=== PATIENT | female | born 1950 | race Caucasian/White ===

== ENCOUNTER 2017-02-10 18:21 | Inpatient (IN) | payer OTHER ==
[~2017-02-10] VITALS: Ht 160 cm; Wt 71.7 kg
--- NOTE | ~2017-02-10 | H ---
[facility] [place] [address] HISTORY AND PHYSICAL Name: KOFFI KAUFMAN Room #: 201-P ADM IN M.R.#: [id number] Admission: 02/10/17 Attend Phys: Brain Clark DO Discharge: Date of : 54 Report #: [id number] THIS REPORT FOR: //name// CC: William Clark DATE OF SERVICE: 02/10/2017 ATTENDING PHYSICIAN: Brain Clark DO. PRIMARY CARE PHYSICIAN: William Alejandre DO. CHIEF COMPLAINT: A-fib with RVR. HISTORY OF PRESENT ILLNESS: The patient is a 66-year-old female who was initially admitted at [facility] on 02/08/2017 for a fall in which she sustained a fracture of her right ribs. She was noted to have pneumonia as well and has been treated with vancomycin and Zosyn. At some point, she went into atrial fibrillation with RVR and she was transferred here since they do not have a caustic pump operator available. She does have a history of paroxysmal atrial fibrillation and normally takes oral Cardizem. She was not feeling any palpitations with her elevated heart rate. She denies any chest pain, but does continue to have pain in her right rib area, specifically with coughing and deep breathing. She has been using incentive spirometer. She has been using oxycodone p.r.n. with some relief. She does have a loose cough and she says it has been nonproductive. It looks like at [facility] [place], she was evaluated by Speech Therapy and it was recommended that she have a video swallow evaluation, but this has not yet been done. She does have Parkinson's. She states sometimes food seems to "go down the wrong pipe," but she does not have any difficulty swallowing liquids. She denies any significant choking episodes. She does have COPD and normally wears 3 liters of oxygen at all times. She has also been dealing with constipation. She says she normally has a bowel movement about every 3 days. She has not had a bowel movement since Monday, so it has been about 4 days. She denies any nausea or vomiting. She was transferred here on Cardizem and amiodarone drips. Upon arrival, her heart rate was 75, so that amiodarone drip has been discontinued. She is currently resting comfortably. PAST MEDICAL HISTORY: COPD, which is oxygen dependent; CML which is in remission; coronary artery disease; paroxysmal atrial fibrillation; chronic anemia; Parkinson's; chronic back pain and GERD. 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 She has also had hysterectomy, tonsillectomy, Carlo fundoplication, cholecystectomy, cervical fusion. [facility] [place] [place] [address] [place] [address] HISTORY AND PHYSICAL Name: KOFFI KAUFMAN Room #: 201-P [facility] IN M.R.#: [id number] Admission: 02/10/17 Attend Phys: Brain Clark DO Discharge: Date of : 54 Report #: [id number] ALLERGIES: CHEESE, but no known drug allergies. HOME MEDICATIONS: Current medications from [place] show that she was on Zosyn 3.375 g IV q. 6 hours, vancomycin 1 g IV b.i.d., albuterol nebulizer q. 6 hours, cyclobenzaprine 10 mg t.i.d. p.r.n., Lovenox 40 mg at bedtime, diltiazem drip and prior to that, she had been on Cardizem 240 mg daily, oxycodone 5 mg 1-2 tabs q. 4 hours p.r.n. pain, Tylenol p.r.n., Sinemet 10/100 one tablet q.i.d., Lasix 40 mg daily, budesonide b.i.d., Mucinex 10 mL q. 6 hours p.r.n. cough, Dulcolax suppository at bedtime, Colace 100 mg b.i.d., MiraLax 17 g at bedtime p.r.n., Protonix 40 mg daily, Solu-Medrol 60 mg q. 6 hours and lidocaine patch daily. SOCIAL HISTORY: The patient is an ex-smoker, having quit 17 years ago after smoking 1-1/2 packs per day. Denies any drug use. She drinks alcohol occasionally on special occasions. She lives with her spouse who still smokes, but not in the home. She is on disability for her lung problems. She ambulates with a walker. She has had another fall in the last few weeks prior to the fall in which she had rib fracture. FAMILY HISTORY: There is coronary artery disease on her mom's side. Her father had diabetes and hypertension. REVIEW OF SYSTEMS: Twelve point review of systems was reviewed with the patient, otherwise negative unless stated in the HPI. PHYSICAL EXAMINATION: GENERAL: The patient is an alert female in no acute distress. VITAL SIGNS: Temperature 37.1; heart rate initially 46 on arrival, it is now 75; respirations 18; blood pressure 113/62; oxygen 97% on room air. HEENT: PERRLA. Sclerae is nonicteric. Oral mucosa is pink and moist. NECK: Supple, no JVD noted. CARDIOVASCULAR: Heart rate is irregular, but no murmurs, rubs or gallops. RESPIRATORY: Breath sounds are clear, but diminished in both bases. Breathing is nonlabored. There is no wheezing. She does have a loose nonproductive cough. ABDOMEN: Round, somewhat distended, but soft. Bowel sounds are positive. VASCULAR: No edema noted. Pedal pulses are 2+. NEUROLOGIC: The patient is alert and oriented x 3. She is able to answer questions and follow commands appropriately. She does have some bilateral upper extremity and head tremors with some involuntary head movements. No focal weakness noted. SKIN: Intact. No rashes or lesions, but she does have an area of ecchymosis on her right lateral rib areas and on her left knee. LABORATORY AND DIAGNOSTICS: Labs at [place] today showed a WBC up to 27.5. It was 21.2 yesterday; hemoglobin 11.3; platelets 274. Sodium 137, potassium 3.6, BUN [facility] [place] [place] [address] [place] [address] HISTORY AND PHYSICAL Name: KOFFI KAUFMAN Room #: 201-P [facility] IN .R.#: [id number] Admission: 02/10/17 Attend Phys: Brain Clark DO Discharge: Date of : 54 Report #: [id number], creatinine 0.8, glucose 101. LFTs are within normal limits. INR was 1.1. ASSESSMENT AND PLAN: 1. Atrial fibrillation with RVR. Her heart rate is now improved after Cardizem and amiodarone drips. We will go ahead and discontinue the amiodarone drip and continue on Cardizem. Cardiology is consulted. Apparently with her history of paroxysmal atrial fibrillation, she was not on any anticoagulation presumably due to her fall risk with Parkinson's. 2. Recent fall with right rib fracture. Continue with incentive spirometry and encourage coughing and deep breathing. Continue with pain control. 3. Pneumonia. I do not have the actual chest x-ray to review, but we will check PA and lateral chest x-ray in the morning. Continue with vancomycin and Zosyn, add Mucinex and continue with breathing treatments. We will follow blood cultures from [place]. 4. Acute on chronic hypoxic respiratory failure due to chronic obstructive pulmonary disease. She is oxygen dependent. We will continue with breathing treatments and IV steroids, which we will wean as able. 5. Chronic myeloid leukemia. The patient states this is in remission. 6. Parkinson's. Continue with Sinemet daily. There was concern for some dysphagia possibly causing aspiration and she had been evaluated by speech therapy at [place] and their notes did recommend a video swallow eval, which has not yet been done. We will go ahead and perform that here and place her on aspiration precautions. 7. Deep venous thrombosis prophylaxis. Place SCDs and continue Lovenox. We will continue to follow the patient closely throughout the hospitalization and make changes based on clinical status. <ELECTRONICALLY SIGNED> By: TODD Jacob 02/11/17 0743 0154 0256 TODD Jacob /nt
--- NOTE | ~2017-02-10 | HC ---
[facility] [place] [address] CONSULTATION Name: SHAEKOFFI Hollie Room #: 201-P [facility] IN ..#: [id number] Admission: 02/10/17 Attend Phys: Mavis Hardy MD Discharge: Date of : 54 Report #: [id number] THIS REPORT FOR: //name// CC: William Clark REASON FOR CONSULTATION: Atrial fibrillation. HISTORY OF PRESENT ILLNESS: The patient is a 66-year-old woman with a history of oxygen dependent lung disease and Parkinson's disease. She had a nonsyncopal fall on February 08, associated with rib fractures. Radiographic study suggested pneumonia. During her hospital stay, she developed atrial fibrillation with a rapid ventricular response and she was transferred to [facility] for further evaluation. She is completely asymptomatic with rhythm disturbance. She does have a history of paroxysmal atrial fibrillation for which she takes Cardizem. She denies chest heaviness, pressure or ischemic type symptoms. No history of palpitations, near syncope or syncope. In 1998, she underwent right atrial myxoma excision. ALLERGIES: To CHEESE. MEDICATIONS: Include Zosyn, vancomycin, nebulizer, Lovenox, diltiazem CD 240 mg daily, Sinemet 4 times a day, Lasix 40 mg daily, Mucinex, Colace, MiraLax, and Protonix. SOCIAL HISTORY: She is a former smoker, is disabled. FAMILY HISTORY: Notable for coronary artery disease. REVIEW OF SYSTEMS: All systems negative except as that noted above. PHYSICAL EXAMINATION: GENERAL: A pleasant elderly woman who is in no distress. VITAL SIGNS: Blood pressure is 112/50, heart rate of 90 and irregular. She is afebrile. HEENT: There are neither xanthelasma, subcutaneous xanthomata, oral mucosal or digital cyanosis or kyphoscoliosis present. CHEST: Reveals diminished breath sounds at the right base. CARDIOVASCULAR: Irregularly irregular rhythm with normal S1, S2. ABDOMEN: Soft and nontender. EXTREMITIES: Without cyanosis, clubbing, or edema. Radial pulses are 2+. NEUROLOGIC: She is alert with a nonfocal exam. LABORATORY DATA: Sodium is 141, potassium 3.9, creatinine 0.7. Troponin 0. White count 21,000, hemoglobin 11, hematocrit 34, platelet count 335. EKG, atrial fibrillation. Chest x-ray demonstrates patchy right lower lobe pneumonia. [address] [address] CONSULTATION Name: SHAEARBENSUSANA Browne Room #: 201-P [facility] IN M.R.#: [id number] Admission: 02/10/17 Attend Phys: Mavis Hardy MD Discharge: Date of : 54 Report #: [id number] IMPRESSION: 1. Oxygen dependent chronic obstructive pulmonary disease. 2. Nonsyncopal fall with right rib fractures. 3. Pneumonia. 4. Atrial fibrillation with a rapid ventricular response, clinically asymptomatic. 5. Parkinson's disease. 6. History of gait instability and falls. RECOMMENDATIONS: 1. Resume oral Cardizem. 2. Given her falls, this one associated with rib fractures. I would recommend use of low dose daily aspirin in place of anticoagulant therapy. I believe that her risk of anticoagulation outweighs benefits. 3. Rate control strategy for atrial fibrillation is recommended given the asymptomatic nature of this rhythm disturbance. Thank you for asking me to participate in the patient's care. <ELECTRONICALLY SIGNED> By: Vern Chapin MD, [facility] 02/13/17 0918 1009 1517 Vern Chapin MD, FACC /nt
--- NOTE | ~2017-02-10 | HC ---
[facility] [place] [address] CONSULTATION Name: KOFFI KAUFMAN Room #: 201-P ADM IN M.R.#: [id number] Admission: 02/10/17 Attend Phys: Brain Clark DO Discharge: Date of : 54 Report #: [id number] THIS REPORT FOR: //name// CC: William Clark PRIMARY CARE PHYSICIAN: Dr. William Alejandre. REFERRING PHYSICIAN: Dr. Clark. REASON FOR REFERRAL: COPD. HISTORY OF PRESENT ILLNESS: The patient is a 66-year-old white female who was transferred from [facility] following a fall. She was found to have atrial fibrillation with rapid ventricular response. Therefore, she was transferred for further evaluation and management. The patient has a history of COPD. She is followed primarily by solderer barrel ribs from [facility] _[facility]. She is known to have pulmonary fibrosis involving the right lower lobe. The patient also has Parkinson's disease. She was doing fairly well when she slipped and fell on February 08 sustaining rib fractures. She was treated for possible pneumonia. She was then found to be in atrial fibrillation with rapid ventricular response. She was transferred to [facility]. Aside from tachycardia, she denies any fever, night sweats or chills. She denies any productive cough. She has been weak primarily because of her Parkinson's disease. PAST MEDICAL HISTORY: As mentioned above, COPD, severity unknown, oxygen dependent, followed by a solderer barrel ribs from [facility]; Parkinson's disease; CML, in remission; coronary artery disease; history of paroxysmal atrial fibrillation; anemia; chronic back pain; gastroesophageal reflux disease. PAST SURGICAL HISTORY: Remarkable for coronary artery bypass surgery in 1998, history of resection of the right atrial myxoma, hysterectomy, tonsillectomy, Carlo fundoplication, cholecystectomy, cervical fusion. ALLERGIES: None to medications. She is allergic to CHEESE. HOME MEDICATIONS: List reviewed. This include Zosyn, vancomycin, Lovenox, nebulized budesonide, Mucinex, Solu-Medrol. FAMILY HISTORY: Notable for coronary artery disease on the maternal side of the family. Father with diabetes and hypertension. [facility] [address] [place] [address] CONSULTATION Name: KOFFI KAUFMAN Hollie Room #: 201-P [facility] IN [facility].#: [id number] Admission: 02/10/17 Attend Phys: Brain Clark DO Discharge: Date of : 54 Report #: [id number] SOCIAL HISTORY: The patient has smoked, but quit about 19 years ago after having smoked a pack and a half for most of her life. She drinks occasional alcohol. She is . She walks with a walker. REVIEW OF SYSTEMS: Notable for generalized weakness and debility due to Parkinson's and COPD. Otherwise, 10-point system review negative. PHYSICAL EXAMINATION: GENERAL: She is awake, alert, in no apparent distress. VITAL SIGNS: Temperature is 97.4 degrees Fahrenheit, pulse is 94, respiratory rate is 18, blood pressure 114/63 mmHg, saturation 98%. HEENT: Normocephalic, atraumatic. NECK: Supple, without lymphadenopathy or thyromegaly. CHEST: Breath sounds are fair without any obvious wheezes. Few scattered crackles in the left base. CARDIOVASCULAR: Normal S1, S2. There is no murmur or gallop. There is no JVD. There is no carotid bruit. Pulses are 2+/4+ bilaterally. ABDOMEN: Soft, nontender, no organomegaly or masses felt. GENITOURINARY: Deferred. RECTAL: Deferred. EXTREMITIES: There is no edema, cyanosis or clubbing. LABORATORY DATA: Chest x-ray shows mild interstitial infiltrate seen in the right lower lobe. There appears to be chronic right lower lobe infiltrates dating back to 2011. Small right pleural effusion is seen. A 2D echocardiogram shows an ejection fraction of 55%, mild mitral regurgitation, normal pulmonary arteries, otherwise unremarkable. EKG shows first-degree AV block, atrial flutter with 3:1 block, otherwise no acute ischemic changes. Electrolytes unremarkable. WBC 21,600, hemoglobin 11.0, platelets are normal, no evidence of bandemia. IMPRESSION: 1. Chronic obstructive pulmonary disease, severity undefined, oxygen dependent without obvious exacerbation. 2. Chronic right lower lobe infiltrate, (? Pneumonia), currently on Zosyn and vancomycin. Could consider discontinuing antibiotics if the patient remains afebrile and stable. 3. Nvpit-xt-sitmnef hypoxic respiratory failure. 4. Recent fall with right-sided rib fractures. 5. Atrial fibrillation with flutter. 6. Coronary artery disease with past history of coronary artery bypass surgery. 7. Parkinson's disease with progressive debility and weakness. [address] [address] CONSULTATION Name: KOFFI KAUFMAN Room #: 201-P [facility] IN M.R.#: [id number] Admission: 02/10/17 Attend Phys: Brain Clark DO Discharge: Date of : 54 Report #: [id number] RECOMMENDATION: We will continue bronchodilators. Taper corticosteroids. We will continue antibiotics for now, but will consider discontinuing if the patient remains afebrile and stable. Overall, the patient is doing fairly well from pulmonary standpoint. DVT and GI prophylaxis will be addressed. Thank you for this consultation. <ELECTRONICALLY SIGNED> By: Thomas Samuels MD 02/12/17 1438 1437 2124 Thomas Samuels MD /nt
--- NOTE | ~2017-02-10 | EKG ---
[address] [place] [address] ELECTROCARDIOGRAM REPORT Name: KOFFI KAUFMAN Room #: 201-P ADM IN M.R.#: [id number] Admission: 02/10/17 Attend Phys: Brain Clark DO Discharge: Date of : 54 Report #: [id number] THIS REPORT FOR: //name// [facility] Test Date: 2017-02-11 Test Time: 10:28:32 Pat Name: KOFFI KAUFMAN Department: Room: 201 P Gender: F Credit Resolution Representative: EDILBERTO : 1950 Requested By: Vern Chapin Order Number: [id number] MD: Vern Chapin Measurements Intervals [place] Rate: 94 P: IL: QRS: 77 QRSD: 97 T: 65 QT: 394 QTc: 493 Interpretive Statements Atrial flutter with predominant 3:1 AV block Nonspecific T wave abnormality Compared to ECG 11/01/2009 07:18:17 Atrial flutter has replaced sinus rhythm Electronically Signed On 02-12-2017 9:55:57 NUT DEHYDRATOR OPERATOR by Vern Chapin [email or web address] <ELECTRONICALLY SIGNED> By: Vern Chapin MD, [facility] 02/12/17 0955 1028 1028 Vern Chapin MD, [facility] /EPI
--- NOTE | ~2017-02-10 | EKG ---
[address] [address] ELECTROCARDIOGRAM REPORT Name: KOFFI KAUFMAN Room #: 201-P ADM IN M.R.#: [id number] Admission: 02/10/17 Attend Phys: Mavis Hardy MD Discharge: Date of : 54 Report #: [id number] THIS REPORT FOR: //name// [facility] Test Date: 2017-02-14 Test Time: 09:19:47 Pat Name: ARBENSUSANA SHAE Department: Room: 201 P Gender: F Bank Sales And Service Manager: RAUL : 1950 Requested By: Nkechi Batista Order Number: [id number] MD: Jacob Taylor Measurements Intervals [place] Rate: 128 P: IN: QRS: 77 QRSD: 91 T: 58 QT: 345 QTc: 504 Interpretive Statements Atrial flutter Compared to ECG 02/11/2017 10:28:32 Prolonged QT interval now present AV block, advanced (high-grade) no longer present T-wave abnormality no longer present Electronically Signed On 02-14-2017 21:43:32 CUPBOARD BUILDER by Jacob Taylor [email or web address] <ELECTRONICALLY SIGNED> By: Jacob Taylor MD 02/14/17 2143 8 8 Jacob Taylor MD /EPI
--- NOTE | ~2017-02-10 | 2DMMODE ---
[facility] [address] [place] [address] 2 D/M-MODE ECHOCARDIOGRAM Name: KOFFI KAUFMAN Room #: 201-P [facility] IN ..#: [id number] Admission: 02/10/17 Attend Phys: Brain Clark, Discharge: Date of : 54 Date of Service: 02/11/17 1221 Report #: [id number] THIS REPORT FOR: //name// APPROVED REPORT Study performed: 02/11/2017 11:43:40 EXAM: Comprehensive 2D, Doppler, and color-flow Echocardiogram Patient Location: Bedside Room #: 201 Status: routine BSA: 1.74 BP: 120/55 mmHg Other Information Study Quality: Technically Difficult/Adequate Indications COPD Atrial Fibrillation CAD 2D Dimensions RVDd: 28.94 mm LVEF(%): 48.59 (>50%) IVSd: 11.06 (7-11mm) LVOT Diam: 17.76 (18-24mm) LVDd: 48.36 mm PWd: 9.87 (7-11mm) LVDs: 36.50 (25-40mm) Aortic Root: 26.45 mm IVC: 13.00 mm Jacinto's LVEF: 48.59 % Volumes Left Atrial Volume (Systole) Single Plane 4CH: 25.72 mL Single Plane 2CH: 42.75 mL LA ESV Index: 23.00 mL/m2 Aortic Valve AoV Peak Michael.: 1.15 m/s AO Peak Gr.: 5.32 mmHg LVOT Max P.05 mmHg LVOT Max V: 0.72 m/s BARBARA Vmax: 1.54 cm2 Mitral Valve [facility] [address] [place] [address] 2 D/M-MODE ECHOCARDIOGRAM Name: KOFFI KAUFMAN Room #: 201-P [facility] IN [facility]#: [id number] Admission: 02/10/17 Attend Phys: Brain Clark, Discharge: Date of : 54 Date of Service: 02/11/17 1221 Report #: [id number] MV Decel. Time: 159.95 ms MV E Max Michael.: 1.48 m/s Pulmonary Valve PV Peak Michael.: 1.04 m/s PV Peak Gr.: 4.31 mmHg Tricuspid Valve TR Peak Michael.: 2.60 m/s RAP Estimate: 5.00 mmHg TR Peak Gr.: 27.13 mmHg PA Pressure: 32.00 mmHg Left Ventricle The left ventricle is normal size. There is normal LV segmental wall motion. There is normal left ventricular wall thickness. The left ventricular systolic function is normal. The left ventricular ejection fraction is within the normal range. LVEF is 55%. This study is not technically sufficient to allow evaluation of the LV diastolic function. Right Ventricle The right ventricle is normal size. The right ventricular systolic function is normal. Atria The left atrium size is normal. The right atrium size is normal. Aortic Valve The aortic valve is not well visualized. No aortic regurgitation is present. There is no aortic valvular stenosis. Mitral Valve Mild mitral annular calcification Mild mitral regurgitation. No evidence of mitral valve stenosis. Tricuspid Valve The tricuspid valve is normal in structure. Trace to mild tricuspid regurgitation. PAP is estimated at 32 mmHg. Pulmonic Valve Pulmonic valve is not well visualized. Great Vessels The aortic root is normal in size. IVC is normal in size and collapses >50% with inspiration. [facility] [place] [address] 2 D/M-MODE ECHOCARDIOGRAM Name: ARBEN KAUFMANSUSANA Browne Room #: 201-P [facility] IN M.R.#: [id number] Admission: 02/10/17 Attend Phys: Brain Clark, Discharge: Date of : 54 Date of Service: 02/11/17 1221 Report #: [id number] Pericardium There is no pericardial effusion. <Conclusion> The left ventricular systolic function is normal. There is normal LV segmental wall motion. LVEF 55%. The aortic valve is not well visualized. No aortic valvular stenosis or insufficiency. Mild mitral annular calcification. Mild mitral regurgitation. Pulmonary artery pressure of 32mmHg There is no pericardial effusion. <ELECTRONICALLY SIGNED> By: Vern Chapin MD, [facility] 02/11/17 1221 1221 1221 Vern Chapin MD, FAC /INF
[~2017-02-10 18:21] MED LIST: ADVAIR 500-501 EACH INH; ASPIRIN325 PO; AVELOX 400 MG400 MG PO; BAYER CHEWABLE81 MG PO; BENZTROPINE MES1 MG PO; COUMADIN 4 MG TA4 M1 PO; DIGOXIN250 MCG OR; DILTIAZEM ER240 M1 PO; FUROSEMIDE 40 M40 M1 PO; HYDROCODONE-AP1 EAC6 PO; JANTOVEN1 MG PO; LANOXIN 0.250.25 M1 OR; NEBULIZER; OXYCODON-ACETA1 EAC1 PO; PREDNISONE 10 M10 M1 PO; PROAIR HFA8.5 GM IH; SEROQUEL 25 MG25 M1 PO; SPIRIVA; SPIRIVA INH; STOOL SOFTENER; STOOL SOFTNER; SYMBICORT160 MCG/4. INH; TASIGNA200 MG PO; XOPENEX
[2017-02-10 20:30] VITALS: BP 113/62
[2017-02-10] MEDS ORDERED: TYLENOL325 MG PO (21:46)
[2017-02-10] MEDS ORDERED: ALBUTEROL2.5 MG/31 INH (21:47)
[2017-02-10] MEDS ORDERED: BISACODYL SUPP10 MG RECTAL (21:47)
[2017-02-10] MEDS ORDERED: SINEMET 10-1001 EAC1 PO (21:48)
[2017-02-10] MEDS ORDERED: PULMICORT0.25 MG/3 INH (21:48)
[2017-02-10] MEDS ORDERED: CARDIZEM CD240 MG PO (21:49)
[2017-02-10] MEDS ORDERED: FLEXERIL PO (21:49)
[2017-02-10] MEDS ORDERED: ENOXAPARIN40 MG/0.1 SUBQ (21:49)
[2017-02-10] MEDS ORDERED: COLACE100 MG PO (21:49)
[2017-02-10] MEDS ORDERED: LASIX 40 MG TAB40 M2 PO (21:50)
[2017-02-10] MEDS ORDERED: MUCINEX FAST-M180 M4 PO (21:52)
[2017-02-10] MEDS ORDERED: VANCO 1 GR1 GM/250 M IVPB (21:52)
[2017-02-10] MEDS ORDERED: DILTIAZEM100 MG/100 IV (21:53)
[2017-02-10] MEDS ORDERED: ZOSYN 3.373.375 GM/1 IV (21:53)
[2017-02-10] MEDS ORDERED: LIDODERM1 EACH TRANSDERM (21:54)
[2017-02-10] MEDS ORDERED: SOLU-MEDRO40 MG/1 M2 IV PUSH (21:55)
[2017-02-10] MEDS ORDERED: OXYCODONE HCL5 MG PO (21:56)
[2017-02-10] MEDS ORDERED: PROTONIX40 M1 PO (21:59)
[2017-02-10] MEDS ORDERED: MIRALAX17 GM PO (21:59)
[2017-02-11 00:15] VITALS: BP 122/60
[2017-02-11 04:30] VITALS: BP 120/55
[2017-02-11 04:35] LABS: HEMATOCRIT 34.3 % (37.0-47.0); MCH 29.5 pg (26.0-34.0); MCHC 31.9 g/dL (28.0-37.0); MCV 92.2 fL (80.0-100.0); PLATELET COUNT 335 thou/uL (150-400); RBC 3.72 mil/uL (4.20-5.00); RDW 14.7 % (10.5-14.5); WBC 21.6 thou/uL (4.0-11.0)
[2017-02-11 04:36] LABS: MANUAL DIFF YES
[2017-02-11 04:46] LABS: CREATININE 0.7 mg/dL (0.6-1.0); MAGNESIUM 1.9 mg/dL (1.8-2.4); POTASSIUM 3.9 mmol/L (3.5-5.1)
[2017-02-11 06:00] LABS: ABSOLUTE NEUTROPHILS 20.5 thou/uL (1.4-8.2); METAMYELOCYTES 2 %; MYELOCYTES 1 %; TOTAL CELL COUNT 100
[2017-02-11 06:01] LABS: PLATELET ESTIMATE NORMAL
[2017-02-11 07:56] VITALS: BP 112/50
[2017-02-11 11:43] VITALS: BP 114/63
[2017-02-11 16:36] VITALS: BP 102/54
[2017-02-11 21:10] VITALS: BP 132/66
[2017-02-12 04:40] VITALS: BP 127/72
[2017-02-12 06:00] VITALS: BP 110/47
[2017-02-12 07:11] LABS: HEMATOCRIT 35.8 % (37.0-47.0); HEMOGLOBIN 11.3 gm/dL (12.0-15.0); MCH 29.1 pg (26.0-34.0); MCHC 31.5 g/dL (28.0-37.0); MCV 92.4 fL (80.0-100.0); RBC 3.88 mil/uL (4.20-5.00); RDW 14.5 % (10.5-14.5)
[2017-02-12 07:20] LABS: CALCIUM 8.6 mg/dL (8.5-10.1); CREATININE 0.8 mg/dL (0.6-1.0); POTASSIUM 3.9 mmol/L (3.5-5.1)
[2017-02-12 08:48] VITALS: BP 117/78
[2017-02-12 12:20] VITALS: BP 125/66
[2017-02-12 19:36] VITALS: BP 137/76
[2017-02-13 03:19] VITALS: BP 136/83
[2017-02-13 07:05] VITALS: BP 139/66
[2017-02-13 11:54] VITALS: BP 154/88
[2017-02-13 15:09] VITALS: BP 147/85
[2017-02-13 19:11] VITALS: BP 149/81
[2017-02-14] VITALS (7 sets, daily range): BP systolic 139–166; BP diastolic 80–128
[2017-02-14 04:16] LABS: HEMATOCRIT 36.5 % (37.0-47.0); HEMOGLOBIN 11.4 gm/dL (12.0-15.0); MCH 28.8 pg (26.0-34.0); MCHC 31.3 g/dL (28.0-37.0); PLATELET COUNT 408 thou/uL (150-400); RBC 3.96 mil/uL (4.20-5.00); RDW 14.4 % (10.5-14.5); WBC 18.2 thou/uL (4.0-11.0)
[2017-02-14 04:19] LABS: MANUAL DIFF YES
[2017-02-14 04:20] LABS: CALCIUM 7.9 mg/dL (8.5-10.1); CREATININE 0.7 mg/dL (0.6-1.0); POTASSIUM 3.9 mmol/L (3.5-5.1)
[2017-02-14 05:54] LABS: ABSOLUTE NEUTROPHILS 15.5 thou/uL (1.4-8.2); METAMYELOCYTES 6 %; MYELOCYTES 2 %; TOTAL CELL COUNT 100
[2017-02-15 02:41] LABS: HEMATOCRIT 38.3 % (37.0-47.0); HEMOGLOBIN 11.9 gm/dL (12.0-15.0); MCHC 31.2 g/dL (28.0-37.0); MCV 92.8 fL (80.0-100.0); RBC 4.12 mil/uL (4.20-5.00); RDW 14.5 % (10.5-14.5); WBC 21.4 thou/uL (4.0-11.0)
[2017-02-15 04:39] VITALS: BP 125/80
[2017-02-15 07:07] VITALS: BP 119/68
[2017-02-15] MEDS ORDERED: AUGMENTIN 875-1 EACH PO (08:09)
[2017-02-15] MEDS ORDERED: ASPIR 8181 MG PO (08:09)
[2017-02-15] MEDS ORDERED: NYSTATIN100000 UNI SWISH&SPIT (08:10)
[2017-02-15] MEDS ORDERED: ATENOLOL 25MG T25 M1 PO (08:10)
[2017-02-15] MEDS ORDERED: PREDNISONE 10 M10 MG PO (08:11)
[2017-02-15 11:37] VITALS: BP 120/72
[2017-02-15 12:50] VITALS: BP 120/72
[2017-02-15 14:21] VITALS: BP 120/72
== END 2017-02-15 15:00 | disposition home health service (06) | DRG 308 ==
LOC: 2N 18:21 → ENTRNSPT 02-15 14:42 → EDTRNSPTSTS 02-15 14:43 → 2N 02-15 15:00
PROVIDERS: Hospitalist; Internal Medicine Endocrinology, Diabetes & Metabolism; Internal Medicine Pulmonary Disease; Nurse Practitioner Acute Care
PROC: B24BZZ4 Ultrasonography of Heart with Aorta, Transesophageal (ICD-10-PCS; principal; 2017-02-11)
DX: I48.0 Paroxysmal atrial fibrillation (principal); J96.21 Acute and chronic respiratory failure with hypoxia; J69.0 Pneumonitis due to inhalation of food and vomit; J44.0 Chronic obstructive pulmonary disease with (acute) lower respiratory infection; K21.9 Gastro-esophageal reflux disease without esophagitis; G20 Parkinson's disease; Z91.018 Allergy to other foods; Z87.891 Personal history of nicotine dependence; Z82.49 Family history of ischemic heart disease and other diseases of the circulatory system; Z99.81 Dependence on supplemental oxygen; Z87.81 Personal history of (healed) traumatic fracture; Z91.81 History of falling; Z85.6 Personal history of leukemia; Z95.1 Presence of aortocoronary bypass graft; Z90.710 Acquired absence of both cervix and uterus; Z90.49 Acquired absence of other specified parts of digestive tract; Z98.1 Arthrodesis status; Z83.3 Family history of diabetes mellitus
CPT/HCPCS: 10081